=== PATIENT | female | born 1975 | race African-American/Black ===

== ENCOUNTER 2021-04-11 13:25 | Inpatient (IN) | payer MEDICAID, OTHER ==
[~2021-04-11] VITALS: Ht 165.1 cm; Wt 56.0 kg
[2021-04-11] MEDS ORDERED: SODIUM CHLORIDE 0.9% 1,000 ML IV ONE ×2 (13:45)
[2021-04-11 14:57] LABS: Basophils # (auto) 0 10 ^3/uL (0-0.2); Basophils % (auto) 0.8 % (0.0-2.0); Eosinophils # (auto) 0 10 ^3/uL (0-0.8); Hematocrit 50.9 % (36.0-46.0); Hemoglobin 16.9 g/dL (12.2-16.2); Lymphocytes # (auto) 1.7 10 ^3/uL (0.4-5.4); Lymphocytes % (auto) 29.7 % (10.0-50.0); Mean Corpuscular Hemoglobin 29.3 pg (28.0-32.0); Mean Corpuscular Hgb Conc. 33.2 g/dL (32.0-36.0); Mean Corpuscular Volume 88.5 fL (80.0-100.0); Monocytes # (auto) 0.6 10 ^3/uL (0-1.3); Monocytes % (auto) 10.4 % (0.0-12.0); Neutrophils # (auto) 3.4 10 ^3/uL (1.6-8.6); Neutrophils % (auto) 59.1 % (37.0-80.0); Nucleated Red Blood Cells % 0.7 %; Red Blood Cells 5.75 10^6/uL (4.0-5.20); Red Cell Distribution Width 15.2 % (11.8-14.3); White Blood Cell 5.8 10^3/uL (4.4-10.8)
[2021-04-11 15:11] LABS: Albumin 3.5 g/dL (3.4-5.0); Calcium 9.5 mg/dL (8.5-10.1); Potassium 3.5 mmol/L (3.5-5.1)
[2021-04-11 15:13] LABS: BUN/Creatinine Ratio 15.5
[2021-04-11 15:17] LABS: Bilirubin, Total 0.8 mg/dL (0.2-1.0); Total Protein 7.7 g/dL (6.4-8.2)
[2021-04-11] MEDS ORDERED: FLEET ENEMA(ADULT) 135 ML PR ONE (20:00)
[2021-04-11] MEDS ORDERED: HYDROcodone-ACET 5/325MG TAB PO PRN (23:30)
[2021-04-11] MEDS ORDERED: ACETAMINOPHEN 325 MG TAB PO PRN (23:30)
[2021-04-12] MEDS ORDERED: NITROGLYCERIN 0.4 MG SL TAB SL PRN
[2021-04-12] MEDS ORDERED: MORPHINE SULFATE INJECTION 2 MG/ML SYRG IV PRN
[2021-04-12 03:01] VITALS: BP 125/94
[2021-04-12 05:00] VITALS: BP 131/90
[2021-04-12 09:00] VITALS: BP 139/96
[2021-04-12 09:16] LABS: Basophils # (auto) 0 10 ^3/uL (0-0.2); Basophils % (auto) 0.4 % (0.0-2.0); Eosinophils # (auto) 0 10 ^3/uL (0-0.8); Eosinophils % (auto) 0.2 % (0.0-7.0); Hemoglobin 14.9 g/dL (12.2-16.2); Lymphocytes # (auto) 2.1 10 ^3/uL (0.4-5.4); Lymphocytes % (auto) 36.5 % (10.0-50.0); Mean Corpuscular Hemoglobin 30.1 pg (28.0-32.0); Mean Corpuscular Hgb Conc. 33.8 g/dL (32.0-36.0); Mean Corpuscular Volume 89.1 fL (80.0-100.0); Monocytes # (auto) 0.6 10 ^3/uL (0-1.3); Monocytes % (auto) 10.8 % (0.0-12.0); Neutrophils % (auto) 52.1 % (37.0-80.0); Nucleated Red Blood Cells % 0.5 %; Red Blood Cells 4.94 10^6/uL (4.0-5.20); Red Cell Distribution Width 15.3 % (11.8-14.3); White Blood Cell 5.7 10^3/uL (4.4-10.8)
[2021-04-12 09:45] LABS: Potassium 3.6 mmol/L (3.5-5.1)
[2021-04-12 09:56] LABS: BUN/Creatinine Ratio 15.8; Bilirubin, Total 0.7 mg/dL (0.2-1.0); Calcium 8.5 mg/dL (8.5-10.1); Total Protein 6.4 g/dL (6.4-8.2)
[2021-04-12] MEDS: DOCUSATE SOD 100 MG CAP PO SCH ×2 (10:26→22:00)
[2021-04-12] MEDS: ASPirin 81 mg TAB PO SCH (10:26)
[2021-04-12] MEDS: FAMOTIDINE (10MG/ML) 2ML VL IV SCH (10:27)
[2021-04-12] MEDS: SODIUM CHLORIDE 0.9% 1,000 ML IV SCH ×2 (10:33→23:23)
[2021-04-12 13:00] VITALS: BP 135/103
[2021-04-12 15:07] LABS: Urine Bacteria NONE SEEN /hpf (None Seen); Urine Blood Negative /uL (Negative); Urine Mucus FEW (None Seen); Urine Specific Gravity 1.012 (1.001-1.035); Urine WBC 1 /hpf (0 - 5)
[2021-04-12 15:24] LABS: Alcohol, Urine < 3.0 mg/dL (0-10); Amphetamine Screen, Urine NEGATIVE (NEGATIVE); Barbiturate Scree,Urine NEGATIVE (NEGATIVE); Benzodiazephine Screen, Urine NEGATIVE (NEGATIVE); Cannabinoid Screen, Urine NEGATIVE (NEGATIVE); Cocaine Screen, Urine NEGATIVE (NEGATIVE); Opiate Scree,Urine NEGATIVE (NEGATIVE); Phencyclidine Screen, Urine NEGATIVE (NEGATIVE)
[2021-04-12 17:00] VITALS: BP 128/96
[2021-04-12 21:55] VITALS: BP 123/98
[2021-04-13 05:00] VITALS: BP 132/99
[2021-04-13 05:48] LABS: CRP High Sensitivity 2.64 mg/dL (< 0.3)
[2021-04-13] MEDS: SODIUM CHLORIDE 0.9% 1,000 ML IV SCH (06:28)
[2021-04-13 09:00] VITALS: BP 159/109
[2021-04-13] MEDS: FAMOTIDINE (10MG/ML) 2ML VL IV SCH (09:59)
[2021-04-13] MEDS: ASPirin 81 mg TAB PO SCH (09:59)
[2021-04-13] MEDS: DOCUSATE SOD 100 MG CAP PO SCH ×2 (09:59→21:48)
[2021-04-13 13:00] VITALS: BP 134/96
[2021-04-13 16:42] VITALS: BP 147/94
[2021-04-13] MEDS: NEUTRA-PHOS TABLET PO SCH (18:50)
[2021-04-13] MEDS: ONDANSETRON HCL 4 MG/2 ML VIAL IV PRN (18:53)
[2021-04-13 22:00] VITALS: BP 134/96
[2021-04-14 05:00] VITALS: BP 133/97
[2021-04-14] MEDS: NEUTRA-PHOS TABLET PO SCH ×3 (08:12→19:11)
[2021-04-14] MEDS: ASPirin 81 mg TAB PO SCH (08:12)
[2021-04-14] MEDS: DOCUSATE SOD 100 MG CAP PO SCH (08:12)
[2021-04-14] MEDS: FAMOTIDINE (10MG/ML) 2ML VL IV SCH (08:13)
[2021-04-14 09:29] VITALS: BP 132/95
[2021-04-14] MEDS ORDERED: LACTULOSE 20Gm/30ML SOLN PO ONE (10:15)
[2021-04-14 10:58] LABS: Folate (Folic Acid) 1.57 ng/mL (5.38-24)
[2021-04-14] MEDS ORDERED: FOLIC ACID 1 MG TAB PO ONE (12:45)
[2021-04-14 12:56] VITALS: BP 122/100
[2021-04-14] MEDS ORDERED: ERGOCALCIFEROL 50,000 UNIT(1.25MG) CAP PO SCH (14:00)
[2021-04-14] MEDS: Ensure HIGH Protein Chocolate 8oz Bottle PO SCH ×2 (14:28→19:11)
[2021-04-14 14:40] LABS: Magnesium 1.8 mg/dL (1.6-2.6); Phosphorus 2.9 mg/dL (2.5-4.90)
[2021-04-14] MEDS: SUCRALFATE 1 GM/10 ML ORAL SUSP PO SCH ×2 (17:10→21:33)
[2021-04-14] MEDS: LACTULOSE 20Gm/30ML SOLN PO PRN (17:11)
[2021-04-14 17:28] VITALS: BP 129/94
[2021-04-14] MEDS: SACUBITRIL-VALSARTAN 24mg/26mg TAB PO SCH (21:34)
[2021-04-14] MEDS: PANTOPRAZOLE 40 MG TAB PO SCH (21:34)
[2021-04-14] MEDS: CARVEDILOL 3.125 MG TAB PO SCH (21:34)
[2021-04-14] MEDS ORDERED: LACTULOSE 20Gm/30ML SOLN PO SCH (22:00)
[2021-04-15] MEDS: SUCRALFATE 1 GM/10 ML ORAL SUSP PO SCH ×4 (05:42→21:21)
[2021-04-15] MEDS ORDERED: ADENOSINE 47 MG in GIVE UN-DILUTED 0 ML IV STA (07:22)
[2021-04-15 08:00] VITALS: BP 117/93
[2021-04-15] MEDS: NEUTRA-PHOS TABLET PO SCH ×3 (08:00→17:49)
[2021-04-15] MEDS: Ensure HIGH Protein Chocolate 8oz Bottle PO SCH ×3 (08:00→18:12)
[2021-04-15 09:00] VITALS: BP 117/93
[2021-04-15] MEDS ORDERED: FOLIC ACID 1 MG TAB PO SCH (10:00)
[2021-04-15] MEDS ORDERED: FAMOTIDINE 20 MG TAB PO SCH (10:00)
[2021-04-15] MEDS: ONDANSETRON HCL 4 MG/2 ML VIAL IV PRN (10:40)
[2021-04-15] MEDS: PANTOPRAZOLE 40 MG TAB PO SCH ×2 (10:43→21:22)
[2021-04-15] MEDS: CARVEDILOL 3.125 MG TAB PO SCH ×2 (10:44→21:22)
[2021-04-15] MEDS: DOCUSATE SOD 100 MG CAP PO PRN (10:45)
[2021-04-15] MEDS: SACUBITRIL-VALSARTAN 24mg/26mg TAB PO SCH ×2 (10:45→21:22)
[2021-04-15] MEDS: ASPirin 81 mg TAB PO SCH (10:45)
[2021-04-15] MEDS: LACTULOSE 20Gm/30ML SOLN PO PRN (10:46)
[2021-04-15 12:15] LABS: Folate (Folic Acid) 4.85 ng/mL (5.38-24)
[2021-04-15 12:43] VITALS: BP 116/93
[2021-04-15] MEDS ORDERED: FOLIC ACID 1 MG in D5W 5% 50 ML INJ SCH (13:00)
[2021-04-15] MEDS: SODIUM CHLORIDE 0.9% 1,000 ML IV SCH (14:16)
[2021-04-15 16:49] VITALS: BP 112/87
[2021-04-15] MEDS: FOLIC ACID 1 MG TAB PO SCH (21:21)
[2021-04-15 22:00] VITALS: BP 111/85
[2021-04-16] MEDS: SODIUM CHLORIDE 0.9% 1,000 ML IV SCH (04:20)
[2021-04-16 05:00] VITALS: BP 113/88
[2021-04-16] MEDS: SUCRALFATE 1 GM/10 ML ORAL SUSP PO SCH ×4 (05:37→21:08)
[2021-04-16 06:10] LABS: Basophils # (auto) 0 10 ^3/uL (0-0.2); Basophils % (auto) 0.4 % (0.0-2.0); Eosinophils # (auto) 0 10 ^3/uL (0-0.8); Eosinophils % (auto) 0.5 % (0.0-7.0); Hematocrit 46.2 % (36.0-46.0); Hemoglobin 15.5 g/dL (12.2-16.2); Lymphocytes % (auto) 10.5 % (10.0-50.0); Mean Corpuscular Hemoglobin 29.8 pg (28.0-32.0); Mean Corpuscular Hgb Conc. 33.6 g/dL (32.0-36.0); Mean Corpuscular Volume 88.6 fL (80.0-100.0); Monocytes # (auto) 1.2 10 ^3/uL (0-1.3); Monocytes % (auto) 12.5 % (0.0-12.0); Neutrophils # (auto) 7.3 10 ^3/uL (1.6-8.6); Neutrophils % (auto) 76.1 % (37.0-80.0); Nucleated Red Blood Cells % 0.1 %; Red Blood Cells 5.22 10^6/uL (4.0-5.20); Red Cell Distribution Width 15.5 % (11.8-14.3); White Blood Cell 9.6 10^3/uL (4.4-10.8)
[2021-04-16 06:16] LABS: INR 1.2 (0.9-1.15); Partial Thromboplastin Time 29.3 sec (23.6-33.0)
[2021-04-16 06:26] LABS: Potassium 3.8 mmol/L (3.5-5.1)
[2021-04-16 06:35] LABS: BUN/Creatinine Ratio 17.5; Calcium 8.9 mg/dL (8.5-10.1)
[2021-04-16] MEDS: Ensure HIGH Protein Chocolate 8oz Bottle PO SCH ×3 (08:00→18:52)
[2021-04-16] MEDS: NEUTRA-PHOS TABLET PO SCH ×2 (08:00→13:00)
[2021-04-16 08:30] VITALS: BP 113/91
[2021-04-16] MEDS ORDERED: LIDOCAINE 2%HCL (LOCAL ANESTH.) INJ 20ML MDV ONE (09:13)
[2021-04-16] MEDS ORDERED: IODIXANOL 320MG/ML 100ML BTL IV ONE (09:13)
[2021-04-16] MEDS: ONDANSETRON HCL 4 MG/2 ML VIAL IV PRN ×2 (09:14→21:34)
[2021-04-16] MEDS ORDERED: fentaNYL CITRATE 100 MCG/2 ML VL ONE (09:33)
[2021-04-16] MEDS ORDERED: ANGIOMAX 250 MG VIAL IV ONE (09:33)
[2021-04-16] MEDS ORDERED: MIDAZOLAM HCL 2MG/2ML 2ml VIAL (1mg/ml) ONE (09:33)
[2021-04-16] MEDS ORDERED: SODIUM CHL 0.9% 0 ML ONE (09:34)
[2021-04-16] MEDS ORDERED: HEPARIN SODIUM (PORCINE) 5000 UNITS/ML 1ML VIAL ONE (09:35)
[2021-04-16] MEDS ORDERED: VERAPAMIL 2.5MG/ML INJ 2ML VIAL IV ONE (09:35)
[2021-04-16] MEDS: FOLIC ACID 1 MG TAB PO SCH (11:36)
[2021-04-16] MEDS: ASPirin 81 mg TAB PO SCH (11:37)
[2021-04-16] MEDS: CARVEDILOL 3.125 MG TAB PO SCH ×2 (11:37→21:09)
[2021-04-16] MEDS: PANTOPRAZOLE 40 MG TAB PO SCH ×2 (11:37→21:09)
[2021-04-16] MEDS: DOCUSATE SOD 100 MG CAP PO PRN (11:37)
[2021-04-16 11:46] VITALS: BP 120/86
[2021-04-16] MEDS: SACUBITRIL-VALSARTAN 24mg/26mg TAB PO SCH ×2 (13:45→21:10)
[2021-04-16 17:00] VITALS: BP 122/93
[2021-04-16 22:00] VITALS: BP 123/101
[2021-04-17] MEDS: SODIUM CHLORIDE 0.9% 1,000 ML IV SCH ×2 (01:05→16:00)
[2021-04-17 05:12] VITALS: BP 106/88
[2021-04-17] MEDS: SUCRALFATE 1 GM/10 ML ORAL SUSP PO SCH ×4 (05:51→22:00)
[2021-04-17] MEDS: Ensure HIGH Protein Chocolate 8oz Bottle PO SCH ×3 (08:00→18:00)
[2021-04-17 09:18] VITALS: BP 107/58
[2021-04-17] MEDS: FOLIC ACID 1 MG TAB PO SCH (09:51)
[2021-04-17] MEDS: ASPirin 81 mg TAB PO SCH (09:51)
[2021-04-17] MEDS: PANTOPRAZOLE 40 MG TAB PO SCH ×2 (09:52→22:00)
[2021-04-17] MEDS: SACUBITRIL-VALSARTAN 24mg/26mg TAB PO SCH ×2 (09:52→22:00)
[2021-04-17] MEDS: CARVEDILOL 3.125 MG TAB PO SCH ×2 (09:52→22:00)
[2021-04-17] MEDS: LACTULOSE 20Gm/30ML SOLN PO PRN (09:53)
[2021-04-17 16:58] VITALS: BP 114/85
[2021-04-17] MEDS: ONDANSETRON HCL 4 MG/2 ML VIAL IV PRN (21:29)
[2021-04-17] MEDS ORDERED: SODIUM CHLORIDE 0.9% 500 ML IV ONE (23:45)
[2021-04-18] MEDS ORDERED: ALBUMIN 25% 100 ML IV ONE ×2 (01:15→01:17)
[2021-04-18] MEDS ORDERED: PROPOFOL 100 ML IV ONE (01:47)
[2021-04-18] MEDS ORDERED: NOREPINEPHRINE 8 MG/250ML KIT 0 ML IV ONE (01:47)
[2021-04-18 01:54] LABS: Basophils # (auto) 0 10 ^3/uL (0-0.2); Basophils % (auto) 0.1 % (0.0-2.0); Eosinophils # (auto) 0 10 ^3/uL (0-0.8); Eosinophils % (auto) 0.2 % (0.0-7.0); Hematocrit 43.4 % (36.0-46.0); Hemoglobin 14.5 g/dL (12.2-16.2); Lymphocytes # (auto) 1.5 10 ^3/uL (0.4-5.4); Lymphocytes % (auto) 14.4 % (10.0-50.0); Mean Corpuscular Hemoglobin 30.2 pg (28.0-32.0); Mean Corpuscular Hgb Conc. 33.4 g/dL (32.0-36.0); Mean Corpuscular Volume 90.5 fL (80.0-100.0); Monocytes # (auto) 1.5 10 ^3/uL (0-1.3); Monocytes % (auto) 14.5 % (0.0-12.0); Neutrophils # (auto) 7.3 10 ^3/uL (1.6-8.6); Neutrophils % (auto) 70.8 % (37.0-80.0); Nucleated Red Blood Cells % 0.3 %; Red Blood Cells 4.79 10^6/uL (4.0-5.20); Red Cell Distribution Width 16.2 % (11.8-14.3); White Blood Cell 10.4 10^3/uL (4.4-10.8)
[2021-04-18] MEDS ORDERED: SODIUM BICARBONATE 8.4% INJ 50ML SYRINGE IV ONE (08:06)
[2021-04-18] MEDS ORDERED: ATROPINE SULF 1 MG/10ml SYR IV ONE (08:06)
[2021-04-18] MEDS ORDERED: EPINEPHrine HCL 1 MG/10 ML SYRG IV ONE (08:06)
[2021-04-18] MEDS ORDERED: AMIODARONE HCL (50 MG/ ML) 3 ML VIAL IV ONE (08:06)
== END 2021-04-18 08:07 | DRG 760 ==
LOC: EDBD 13:25 → ER 13:25 → TELE 23:48 → TELE-CENTR 04-12 01:41
PROVIDERS: ADMIT Nurse Practitioner Family; ATTEND Internal Medicine Nephrology
PROC: 4A023N7 Measurement of Cardiac Sampling and Pressure, Left Heart, Percutaneous Approach (ICD-10-PCS; principal; 2021-04-16)
PROC: B211YZZ Fluoroscopy of Multiple Coronary Arteries using Other Contrast (ICD-10-PCS; 2021-04-16)
PROC: B215YZZ Fluoroscopy of Left Heart using Other Contrast (ICD-10-PCS; 2021-04-16)
PROC: 5A12012 Performance of Cardiac Output, Single, Manual (ICD-10-PCS; 2021-04-18)
PROC: 5A2204Z Restoration of Cardiac Rhythm, Single (ICD-10-PCS; 2021-04-18)
DX: F50.9 Eating disorder, unspecified (principal); I50.20 Unspecified systolic (congestive) heart failure; E88.09 Other disorders of plasma-protein metabolism, not elsewhere classified; K82.8 Other specified diseases of gallbladder; I25.10 Atherosclerotic heart disease of native coronary artery without angina pectoris; D57.3 Sickle-cell trait; E86.0 Dehydration; Z68.20 Body mass index [BMI] 20.0-20.9, adult; K59.00 Constipation, unspecified; K80.20 Calculus of gallbladder without cholecystitis without obstruction; R63.4 Abnormal weight loss; M79.7 Fibromyalgia; M54.30 Sciatica, unspecified side; E53.8 Deficiency of other specified B group vitamins; E55.9 Vitamin D deficiency, unspecified; G24.9 Dystonia, unspecified; K21.9 Gastro-esophageal reflux disease without esophagitis; Z82.49 Family history of ischemic heart disease and other diseases of the circulatory system; Z83.3 Family history of diabetes mellitus; Z90.710 Acquired absence of both cervix and uterus
CPT/HCPCS: 36415; 71045; 74176; 78226; 80048; 80053; 80307; 81001; 82306; 82550; 82607; 82746; 82962; 83036; 83516; 83735; 84100; 84443; 84484; 84702; 85025; 85610; 85652; 85730; 86141; 86225; 86235; 87040; 87426; 92950; 93005; 93306; 93458; 93970; 96360; 96361; 97110; 97163; 97530; 99152; G0378; J0153; J2250; J2405; J2704; J3490; J7060; P9047; Q9967